=== PATIENT | female | born 1980 | race African-American/Black ===

== ENCOUNTER 2018-11-22 15:39 | Emergency (ER) | payer MEDICARE ==
[~2018-11-22] VITALS: Ht 157.5 cm; Wt 62.5 kg
[2018-11-22 16:22] VITALS: BP 113/71
== END 2018-11-22 17:33 | disposition left against medical advice (07) ==
LOC: ER 16:16
DX: Z53.21 Procedure and treatment not carried out due to patient leaving prior to being seen by health care provider (principal)

== ENCOUNTER 2023-01-12 07:44 | Emergency (ER) | payer MEDICARE ==
[~2023-01-12] VITALS: Ht 167.6 cm; Wt 91.0 kg
[2023-01-12 07:47] VITALS: BP 132/87; PULSE 76; RESP 18; TEMP 98; O2SAT 100
[2023-01-12 10:02] LABS: BASOPHILS % 0.8 % (0.0-2.0); EOSINOPHILS % 6.5 % (0.0-5.0); HEMATOCRIT. 34.9 % (36.0-48.0); HEMOGLOBIN. 11.4 g/dL (12.0-16.0); LYMPHOCYTES % 31.1 % (20.0-50.0); MEAN CORPUSCULAR HEMOGLOBIN 29.1 pg (28.0-32.0); MEAN CORPUSCULAR HGB CONC 32.7 g/dL (31.0-37.0); MEAN PLATELET VOLUME 7.3 fl (7.4-10.4); MONOCYTES % 6.3 % (2.0-8.0); NEUTROPHILS % 55.3 % (40.0-76.0); PLATELET 551 x1000/uL (130-400); RED BLOOD CELL COUNT 3.93 mill/uL (4.2-5.4); RED CELL DISTRIBUTION WIDTH 16.4 % (11.6-14.6); WHITE BLOOD COUNT 5.9 x1000/uL (4.5-11.0)
[2023-01-12 10:08] LABS: ALANINE AMINOTRANSFERASE 12 IU/L (10-49); ALBUMIN 4.1 g/dL (3.2-4.8); ASPARTATE AMINOTRANSFERASE 22 IU/L (<34); BILIRUBIN TOTAL 0.4 mg/dL (0.1-1.0); CARBON DIOXIDE 28 mEq/L (21-32); CHLORIDE 101 mEq/L (98-107); CREATININE 0.7 mg/dL (0.6-1.0); GLUCOSE 105 mg/dL (70-105); POTASSIUM 3.7 mEq/L (3.5-5.1); PROTEIN TOTAL 6.5 g/dL (6.0-8.3); SODIUM 135 mEq/L (136-145)
[2023-01-12] MEDS ORDERED: IBUP-2030 PO (10:43)
[2023-01-12 10:52] LABS: B-HCG QUANTITATIVE < 0 mIU/mL (<3); UREA NITROGEN BLOOD < 5 mg/dL (9-23)
== END 2023-01-12 11:05 | disposition home or self-care (01) ==
LOC: ER 07:58
DX: D25.9 Leiomyoma of uterus, unspecified (principal); N93.8 Other specified abnormal uterine and vaginal bleeding
CPT/HCPCS: 36415; 76830; 76856; 80053; 81025; 84702; 85025; 86850; 86900; 99284

== ENCOUNTER 2024-01-26 08:29 | Emergency (ER) | payer MEDICARE, MEDICAID ==
[~2024-01-26] VITALS: Ht 157.5 cm; Wt 61.0 kg
[~2024-01-26 08:29] MED LIST: IBUP-2030 PO
[2024-01-26 08:30] VITALS: BP 111/60; RESP 16; TEMP 98.5; O2SAT 100
[2024-01-26 08:57] VITALS: PULSE 96; O2SAT 100
== END 2024-01-26 09:41 | disposition left against medical advice (07) ==
LOC: ER 08:41
DX: R10.9 Unspecified abdominal pain (principal); Z53.21 Procedure and treatment not carried out due to patient leaving prior to being seen by health care provider

== ENCOUNTER 2024-01-26 11:11 | Emergency (ER) | payer MEDICARE, MEDICAID ==
[~2024-01-26] VITALS: Ht 157.5 cm; Wt 61.0 kg
[2024-01-26 11:17] VITALS: O2SAT 100
[2024-01-26 11:18] VITALS: BP 121/72; PULSE 93; RESP 16; TEMP 98.8; O2SAT 99
[2024-01-26 13:06] LABS: DIFFERENTIAL COMMENT 0; EOSINOPHILS % 2.7 % (0.0-5.0); HEMATOCRIT. 28.7 % (36.0-48.0); HEMOGLOBIN. 8.8 g/dL (12.0-16.0); LYMPHOCYTES % 40.6 % (20.0-50.0); MEAN CORPUSCULAR HEMOGLOBIN 24.9 pg (28.0-32.0); MEAN CORPUSCULAR HGB CONC 30.7 g/dL (31.0-37.0); MEAN CORPUSCULAR VOLUME 81.2 fL (81.0-99.0); MEAN PLATELET VOLUME 7.6 fl (7.4-10.4); NEUTROPHILS % 47.7 % (40.0-76.0); PLATELET 474 x1000/uL (130-400); RED BLOOD CELL COUNT 3.53 mill/uL (4.2-5.4); RED CELL DISTRIBUTION WIDTH 20.1 % (11.6-14.6)
[2024-01-26 13:13] LABS: CHLORIDE 106 mEq/L (98-107); POTASSIUM 4.1 mEq/L (3.5-5.1); SODIUM 139 mEq/L (136-145)
[2024-01-26 13:14] LABS: CALCIUM 9.6 mg/dL (8.7-10.4); CARBON DIOXIDE 26 mEq/L (21-32)
[2024-01-26 13:17] LABS: ALANINE AMINOTRANSFERASE 14 IU/L (10-49); ALBUMIN 4.2 g/dL (3.2-4.8); ASPARTATE AMINOTRANSFERASE 23 IU/L (<34); BILIRUBIN TOTAL 0.3 mg/dL (0.1-1.0); PROTEIN TOTAL 6.7 g/dL (6.0-8.3)
[2024-01-26 13:19] LABS: BILIRUBIN DIRECT < 0.1 mg/dL (<=3.0); CREATININE 0.8 mg/dL (0.6-1.0); GLUCOSE 100 mg/dL (70-105); UREA NITROGEN BLOOD 9 mg/dL (9-23)
[2024-01-26 14:26] LABS: CLARITY URINE CLOUDY (CLEAR); COLOR URINE DARK YELLOW (YELLOW); GLUCOSE URINE NEGATIVE (NEGATIVE); KETONES URINE TRACE (NEGATIVE); LEUKOCYTE ESTERASE URINE 1+ (NEGATIVE); NITRITE URINE NEGATIVE (NEGATIVE); OCCULT BLOOD URINE TRACE (NEGATIVE); PROTEIN URINE NEGATIVE (NEGATIVE); SPECIFIC GRAVITY URINE 1.023 (1.005-1.030); UROBILINOGEN URINE 0.2 E.U./dL (0.2-1.0)
[2024-01-26 14:39] LABS: HCG SCREEN NEGATIVE
[2024-01-26 14:43] LABS: BACTERIA URINE 1+; SQUAMOUS EPITHELIAL CELL URINE 2+ /lpf (RARE/1+); YEAST URINE NONE SEEN
== END 2024-01-26 15:10 | disposition home or self-care (01) ==
LOC: ER 11:11
DX: D25.9 Leiomyoma of uterus, unspecified (principal); F12.10 Cannabis abuse, uncomplicated
CPT/HCPCS: 36415; 76830; 76856; 80048; 80076; 81003; 84703; 85025; 99284

== ENCOUNTER 2024-03-25 21:48 | Emergency (ER) | payer MEDICARE, MEDICAID ==
[~2024-03-25] VITALS: Ht 162.6 cm; Wt 59.0 kg
[2024-03-25 21:52] VITALS: O2SAT 100
[2024-03-25 22:27] VITALS: BP 134/66; PULSE 100; RESP 18; TEMP 37.2; O2SAT 99
[2024-03-26] MEDS ORDERED: IBUP-2029 MT (00:55)
== END 2024-03-26 02:28 | disposition home or self-care (01) ==
LOC: ER 21:48
DX: M25.511 Pain in right shoulder (principal); F12.90 Cannabis use, unspecified, uncomplicated
CPT/HCPCS: 73030; 99283